=== PATIENT | male | born 1985 | race Native Hawaiian/Other Pacific Islander ===

== ENCOUNTER 2018-07-02 22:26 | Inpatient (IN) | payer MEDICAID ==
--- NOTE | 2018-07-02 22:52 | C.PDOC ---
History Of Present Illness pt presents with weakness of the right side, which started around 4-5 hours ago. Pt has also been complaining of paresthisias of the right side for about 2 months. Pt is non compliant with blood pressure medication. No f/c/n/v. No slurred speech, no visual changes Time Seen by Provider: 07/02/18 22:52 Chief Complaint (Nursing): Weakness/Neurological Deficit History Per: Family History/Exam Limitations: no limitations Onset/Duration Of Symptoms: Hrs (>4) Current Symptoms Are (Timing): Still Present Seizure Or Post-ictal Symptoms: None Possible Causative Factor(s): Other (not taking bp meds) Severity: Severe Pain Scale Rating Of: 8 Past Medical History Reviewed: Historical Data, Nursing Documentation, Vital Signs Vital Signs: Last Vital Signs Temp 98.2 F 07/02/18 22:37 Pulse 60 07/02/18 23:12 Resp 14 07/02/18 23:12 BP 144/91 H 07/02/18 23:12 Pulse Ox 98 07/02/18 23:17 - Medical History PMH: Anxiety, HTN Denies: Chronic Kidney Disease Family History: States: No Known Family Hx - Social History Hx Alcohol Use: No Hx Substance Use: No - Immunization History Hx Tetanus Toxoid Vaccination: No Hx Influenza Vaccination: No Hx Pneumococcal Vaccination: No Review Of Systems Constitutional: Negative for: Fever, Chills Eyes: Negative for: Vision Change ENT: Negative for: Throat Pain Cardiovascular: Negative for: Chest Pain Respiratory: Negative for: Shortness of Breath Gastrointestinal: Negative for: Nausea, Vomiting, Abdominal Pain Genitourinary: Negative for: Dysuria Musculoskeletal: Negative for: Back Pain Skin: Negative for: Rash Neurological: Positive for: Weakness (right side) Psych: Negative for: Anxiety Physical Exam - Physical Exam Appears: Non-toxic Skin: Warm, Dry Head: Normacephalic Eye(s): bilateral: Normal Inspection, PERRL, EOMI Oral Mucosa: Moist Neck: Trachea Midline, Supple Chest: Symmetrical Cardiovascular: Rhythm Regular Respiratory: No Rales, No Rhonchi, No Wheezing Gastrointestinal/Abdominal: Soft, No Tenderness, No Distention Back: Normal Inspection Extremity: No Tenderness Extremity: Bilateral: Atraumatic, Normal Color And Temperature Pulses: Left Dorsalis Pedis: Normal, Right Dorsalis Pedis: Normal Neurological/Psych: Oriented x3, Normal Speech, Normal Cognition Gait: Unable To Assess Extremity: Right: No Effort Against [place] (arm and leg) ED Course And Treatment - Laboratory Results Result Diagrams: 07/02/18 23:02 07/02/18 23:02 O2 Sat by Pulse Oximetry: 98 Pulse Ox Interpretation: Normal Progress Note: 10:[address] murdock -neurology district extension service agent - will see the pt using teleneurology. 11:13PM pt now starting to move his right arm and leg. good effort aganist gravity Critical Care Time - Critical Care Note Total Time (in mins): 40 Documented critical care: time excludes all time spent performing seperately billable procedures. NIHSS Stroke Scale 2 - Date/Time Evaluation Performed Date Performed: 07/02/18 Time Performed: 22:47 When Was NIHSS Performed: Baseline - How Severe is the Stroke Level of Consciousness: 0=Alert LOC to Questions: 0=Both comments correct LOC to commands: 1=Obeys one correctly Best Gaze: 0=Normal Visual: 0=No visual loss Facial: 0=Normal Motor Arm - Left: 0=No drift Motor Arm - Right: 3=No effort against gravity (falls immediately) Motor Leg - Left: 0=No drift Motor Leg - Right: 3=No effort against gravity (falls immediately) Limb Ataxia: 1=Present Upper or Lower Sensory: 0=Normal Best Language: 0=No aphasia Dysarthia: 0=Normal articulation Extinction & Inattention (Neglect): 0=Normal, no object Score: 8 Disposition Discussed With : Trina Jamison Comment: accepted the pt on his serevice and took over the care at 11:55 PM Doctor Will See Patient In The: Hospital Counseled Patient/Family Regarding: Studies Performed, Diagnosis - Disposition Disposition: HOSPITALIZED Disposition Time: 22:52 Condition: FAIR Forms: [facility] ([place]) - POA Present On Arrival: None - Clinical Impression Clinical Impression: TIA (transient ischemic attack) Decision To Admit - Pt Status Changed To: Hospital Disposition Of: Inpatient - Admit Certification Admit to Inpatient:: After my assessment, the patient will require hospitalization for at least two midnights. This is because of the severity of symptoms shown, intensity of services needed, and/or the medical risk in this patient being treated as an outpatient. - InPatient: Physician Admission Certification: I certify that this patient requires 2 or more midnights of care for the following reason:: After my assessment, the patient will require hospitalization for at least two midnights. This is because of the severity of symptoms shown, intensity of services needed, and/or the medical risk in this patient being treated as an outpatient. - . Bed Request Type: Telemetry Admitting Physician: Trina Jamison Patient Diagnosis: TIA (transient ischemic attack)
[2018-07-02] MEDS ORDERED: Iodixanol 320 MG/ML 100 ML BOTTLE IV ONE (22:59)
[2018-07-02] MEDS ORDERED: Sodium Chloride 0.9% 1,000 ML IV SCH (23:00)
[2018-07-02 23:05] LABS: BASO # 0.1 K/uL (0.0-0.2); BASO % 0.6 % (0.0-2.0); EOS # 0.4 K/uL (0.0-0.7); EOS % 2.8 % (0.0-4.0); HEMOGLOBIN 14.7 g/dL (12.0-18.0); LYMPH # 8.1 K/uL (1.0-4.3); LYMPH % 51.9 % (20.0-40.0); MEAN CELL VOLUME 79.4 fL (80.0-94.0); MEAN CORPUSCULAR HEMOGLOBIN 26.6 pg (27.0-31.0); MEAN CORPUSCULAR HGB CONC 33.5 g/dL (33.0-37.0); MEAN PLATELET VOLUME 8.5 fL (7.2-11.7); MONO % 6.2 % (0.0-10.0); NEUT % 38.5 % (50.0-75.0); RBC 5.55 Mil/uL (4.40-5.90); RED CELL DISTRIBUTION WIDTH 14.4 % (11.5-14.5); WHITE BLOOD COUNT 15.6 K/uL (4.8-10.8)
[2018-07-02 23:13] LABS: INR 1.1; PROTHROMBIN TIME 11.5 SECONDS (9.7-12.2)
[2018-07-02 23:23] LABS: ALB/GLOB RATIO 1.3 (1.0-2.1); ALBUMIN 4.1 g/dL (3.5-5.0); ALT/SGPT 24 U/L (21-72); AST/SGOT 20 U/L (17-59); BLOOD UREA NITROGEN 14 mg/dL (9-20); CALCIUM 9.1 mg/dl (8.6-10.4); GFR NON-AFRICAN AMERICAN > 60; HDL CHOLESTEROL 32 mg/dL (30-70)
[2018-07-02 23:34] LABS: LDL CHOLESTEROL 103 mg/dL (0-129)
[2018-07-02] MEDS ORDERED: Sodium Chloride 0.9% 1,000 ML IV ONE (23:42)
--- NOTE | 2018-07-02 23:48 | CP.PCM.CON ---
History of Present Illness - History of Present Illness History of Present Illness: This is a Tele-Health Emergency Stroke Visit attempted with [facility]. The patient is a 33-year-old man with a past medical history of hypertension and anxiety, who states that he had an episode of anxiety about two months ago associated with right arm weakness/numbness, but today about 6 hours prior to arrival, he noticed his right arm became weak. When he initially arrived in the ED, he had right arm and leg weakness, and a code stroke was called. His initial NIHSS was a 6. CT scan of the head and CTA of the head/neck were normal. When he returned from CT scanner, he was back to normal with no focal neurological deficits remaining. When I saw the patient, his NIHSS was 0. Review of Systems - Review of Systems All systems: reviewed and no additional remarkable complaints except Past Patient History - Past Social History Smoking Status: Light Smoker < 10 Cigarettes Daily - CARDIAC Hx Hypertension: Yes - PULMONARY Hx Respiratory Disorders: No - NEUROLOGICAL Hx Neurological Disorder: No - HEENT Hx HEENT Problems: No - RENAL Hx Chronic Kidney Disease: No - ENDOCRINE/METABOLIC Hx Endocrine Disorders: No - HEMATOLOGICAL/ONCOLOGICAL Hx Blood Disorders: No - INTEGUMENTARY Hx Dermatological Problems: No - MUSCULOSKELETAL/RHEUMATOLOGICAL Hx Musculoskeletal Disorders: No - PSYCHIATRIC Hx Anxiety: Yes Hx Substance Use: No - ANESTHESIA Hx Anesthesia: No Meds Allergies/Adverse Reactions: Allergies Allergy/AdvReac Type Severity Reaction Status Date / Time No Known Allergies Allergy Verified 07/02/18 22:45 - Medications Medications: Current Medications Sodium Chloride (Sodium Chloride 0.9%) 1,000 mls @ 100 mls/hr IV .Q10H [facility] Physical Exam - Neurological Exam Neurological exam: Alert, CN II-XII Intact - Expanded Neurological Exam Expanded Patient oriented to: person, place, time Cranial nerves: EOM's Intact: Normal, Facial [place] w/Forehead Movement: Normal , Facial [place] w/o Forehead Movement: Normal, Facial Sensation: Normal, Gag Reflex: Normal, Nystagmus: Normal, Tongue Deviation: Normal Ataxia: No Cerebellar Function: Finger to Nose: Normal, Heel to Ness: Normal Sensory exam: Lower Extremity 2 Point Discrimination: Normal, Lower Extremity Light Touch: Normal, Lower Extremity Pin Prick: Normal, Lower Extremity Temperature: Normal, Upper Extremity 2 Point Discrimination: Normal, Upper Extremity Light Touch: Normal, Upper Extremity Pin Prick: Normal, Upper Extremity Temperature: Normal Neuro motor strength exam: Left Upper Extremity: 5, Right Upper Extremity: 5, Left Lower Extremity: 5, Right Lower Extremity: 5 Results - Vital Signs Recent Vital Signs: Last Vital Signs Temp 98.2 F 07/02/18 22:37 Pulse 61 07/02/18 22:37 Resp 22 07/02/18 22:37 BP 125/86 07/02/18 22:37 Pulse Ox 98 07/02/18 23:17 - Labs Result Diagrams: 07/02/18 23:02 Labs: Laboratory Results - last 24 hr 07/02/18 07/02/18 07/02/18 22:44 23:02 23:02 WBC 15.6 H RBC 5.55 Hgb 14.7 Hct 44.0 MCV 79.4 L MCH 26.6 L MCHC 33.5 RDW 14.4 Plt Count 299 MPV 8.5 Neut % (Auto) 38.5 L Lymph % (Auto) 51.9 H [place] % (Auto) 6.2 Eos % (Auto) 2.8 Baso % (Auto) 0.6 Neut # (Auto) 6.0 Lymph # (Auto) 8.1 H [place] # (Auto) 1.0 H Eos # (Auto) 0.4 Baso # (Auto) 0.1 PT 11.5 INR 1.1 APTT 31 POC Glucose (mg/dL) 96 Assessment & Plan (1) TIA (transient ischemic attack) Assessment and Plan: Symptoms appear to be improved now, but had lasted for nearly 6 hours. I recommend the following for work-up/treatment: 1. Telemetry 2. MRI brain without contrast 3. Echocardiogram with bubble study 4. Aspirin 81 mg now, and continue daily 5. Lipitor 40 mg now 6. Lipid panel, HbA1c, B12, folate, homcysteine levels, vitamin D levels 7. Fluids with NS at 100 mL/hr 8. Permissive HTN (only treat BP that is higher than 220/110 mm Hg) for the next 24 hours 9. Case management consult 10. Psych consult for possible conversion disorder 11. dry transfer worker consult Thank you. Status: Acute Priority: High NIHSS Stroke Scale 3 - Date/Time Evaluation Performed Date Performed: 07/02/18 Time Performed: 22:47 - How Severe is the Stroke Level of Consciousness: 0=Alert LOC to Questions: 0=Both comments correct LOC to commands: 0=Obeys both correctly Best Gaze: 0=Normal Visual: 0=No visual loss Facial: 0=Normal Motor Arm - Left: 0=No drift Motor Arm - Right: 0=No drift Motor Leg - Left: 0=No drift Motor Leg - Right: 0=No drift Limb Ataxia: 0=Absent Sensory: 0=Normal Best Language: 0=No aphasia Dysarthia: 0=Normal articulation Extinction & Inattention (Neglect): 0=Normal, no object Score: 0 Severity Of Stroke: 0 = No Stroke
[2018-07-02] MEDS ORDERED: Sodium Chloride 0.9% 1,000 ML ONE (23:55)
[2018-07-03] MEDS ORDERED: Vitamins A & D Oint UD Foilpak ONE (02:09)
[2018-07-03] MEDS ORDERED: Sodium Chloride 0.9% 1,000 ML ONE (02:09)
[2018-07-03 03:00] VITALS: TEMP 97.5
--- NOTE | 2018-07-03 07:58 | RAD ---
Date of service: 07/02/2018 HISTORY: Code Stroke COMPARISON: No prior. FINDINGS: LUNGS: No active pulmonary disease. PLEURA: No significant pleural effusion identified, no pneumothorax apparent. CARDIOVASCULAR: Normal. OSSEOUS STRUCTURES: No significant abnormalities. VISUALIZED UPPER ABDOMEN: Normal. OTHER FINDINGS: None. IMPRESSION: No active disease.
--- NOTE | 2018-07-03 08:12 | CT ---
Date of service: 07/02/2018 PROCEDURE: CT HEAD WITHOUT CONTRAST. HISTORY: code stroke COMPARISON: None available. TECHNIQUE: Axial computed tomography images were obtained through the head/brain without intravenous contrast. Radiation dose: Total exam DLP = 838 mGy-cm. This CT exam was performed using one or more of the following dose reduction techniques: Automated exposure control, adjustment of the mA and/or kV according to patient size, and/or use of iterative reconstruction technique. FINDINGS: HEMORRHAGE: No intracranial hemorrhage. BRAIN: No mass effect or edema. No atrophy or chronic microvascular ischemic changes. VENTRICLES: Unremarkable. No hydrocephalus. CALVARIUM: Unremarkable. PARANASAL SINUSES: Mild to moderate mucosal thickening in the bilateral ethmoid and sphenoid sinuses compatible with chronic sinus inflammatory disease. MASTOID AIR CELLS: Unremarkable as visualized. No inflammatory changes. OTHER FINDINGS: None. IMPRESSION: No acute intracranial abnormality. Sinus mucosal disease as above. If there is persistent concern for acute ischemic change, consider correlation with MRI. These findings were preliminarily reported at 11:23 p.m. on 07/02/[address] Katherine Fisher from [facility].
[2018-07-03 08:33] VITALS: BP 105/70; PULSE 50; RESP 18; O2SAT 100
--- NOTE | 2018-07-03 09:11 | CP.PCM.PN ---
Subjective - Date & Time of Evaluation Date of Evaluation: 07/03/18 Time of Evaluation: 09:00 - Subjective Subjective: Progress note for Dr. Jamison's Service Patient was seen and examined at bedside. Patient reports he does not have any current weakness, changes in vision, decrease sensation or motor strength in all 4 for extremities. - This is a 33 year old German male with PMHx of Hypertension who presented to the ED last night with right arm weakness and numbness x 6 hours prior to arrival. Patient reported he has never had this symptoms before. He reported the symptoms remained until mid admission in the hospital. On arrival as per Neuro note, NIHSS was 6. Upon Neuro evaluation NIHSS 0. CT scan of the head and CTA of the head/neck were normal. Pending Brain MRI for discharge. Patient reports no neurological deficits currently. PMHx: Hypertension PSHx: Denied Meds: Denied All: NKDA SHx: Denied tobacco, ETOH, or illicit drug use FHx: Unremarkable Objective - Vital Signs/Intake and Output Vital Signs (last 24 hours): Temp Pulse Resp BP Pulse Ox 97.5 F L 50 L 18 105/70 100 07/03/18 07:30 07/03/18 07:30 07/03/18 07:30 07/03/18 07:30 07/03/18 07:30 - Medications Medications: Current Medications Sodium Chloride (Sodium Chloride 0.9%) 1,000 mls @ 100 mls/hr IV .Q10H [facility] Last Admin: 07/03/18 00:51 Dose: 100 mls/hr - Labs Labs: 07/02/18 23:02 07/02/18 23:02 PT 11.5 SECONDS (9.7-12.2) 07/02/18 23:02 INR 1.1 07/02/18 23:02 APTT 31 SECONDS (21-34) 07/02/18 23:02 - Constitutional Appears: No Acute Distress - Head Exam Head Exam: NORMAL INSPECTION, NORMOCEPHALIC - Eye Exam Eye Exam: EOMI, Normal appearance, PERRL Pupil Exam: NORMAL ACCOMODATION - ENT Exam ENT Exam: Mucous Membranes Moist - Respiratory Exam Respiratory Exam: NORMAL BREATHING PATTERN - Cardiovascular Exam Cardiovascular Exam: REGULAR RHYTHM - GI/Abdominal Exam GI & Abdominal Exam: Soft, Normal Bowel Sounds. absent: Distended, Tenderness - Extremities Exam Extremities Exam: Normal Inspection. absent: Pedal Edema, Tenderness - Neurological Exam Neurological Exam: Alert, Awake, CN II-XII Intact, Normal Gait, Oriented x3, Reflexes Normal Neuro motor strength exam: Left Upper Extremity: 5, Right Upper Extremity: 5, Left Lower Extremity: 5, Right Lower Extremity: 5 - Psychiatric Exam Psychiatric exam: Normal Affect, Normal Mood - Skin Skin Exam: Dry, Intact, Normal Color, Warm Assessment and Plan - Assessment and Plan (Free Text) Plan: TIA Neurology consulted: Dr. Andrade - All neurological symptoms resolved - All labs WNL Imaging: - Head / Neck CTA and Head CT: unremarkable for any findings of hemorrhagic or ischemic stroke - Brain MRI: pending official read and neuro reccs Meds: - Aspirin 81mg daily, Crestor 10mg daily Hx Hypertension - Normotensive throughout admission - Will continue to monitor Vitamin D Deficiency - Level 17.1 - Will need to take Ergocalciferol 50,000 1 tablet weekly x 6 months IGT - Hemoglobin A1C 5.9 - Encouraged diet, exercise, and weight loss All medical management per Dr. Jamison. Disposition: Pending Brain MRI and Neuro reccs. Will discharge patient once cleared from Neuro's standpoint. Case discussed w/ Dr. Jamison, Stacie Ramos DO, PGY2
--- NOTE | 2018-07-03 14:19 | CT ---
Date of service: 07/02/2018 PROCEDURE: CT Angiography of the Brain. HISTORY: r hemiplegia COMPARISON: None available. TECHNIQUE: CT angiography of the neck and intracranial arteries was performed. Coronal and sagittal maximum intensity projection reformated images were generated. This CT exam was performed using one or more of the following dose reduction techniques: Automated exposure control, adjustment of the mA and/or kV according to patient size, and/or use of iterative reconstruction technique. Contrast volume: 100 mL of Visipaque 320 intravenously. Total exam DLP: 713.2 FINDINGS: RIGHT CAROTID ARTERIES: Common Carotid Artery: Normal. Carotid Bifurcation: Normal. Internal Carotid Artery:Normal. External Carotid Artery (proximal branches): Normal. LEFT CAROTID ARTERIES: Common Carotid Artery: Normal. Carotid Bifurcation: Normal. Internal Carotid Artery:Normal. External Carotid Artery (proximal branches): Normal. VERTEBRAL ARTERIES: Right Vertebral Artery: Normal. Left Vertebral Artery: Normal. INTERNAL CEREBRAL ARTERIES: Unremarkable. The skull base, petrous, cavernous and supraclinoid segments are bilaterally widely patent. ANTERIOR CEREBRAL ARTERIES: The left A1 is smaller than the right. The anterior cerebral arteries are patent. . Smaller distal branches unremarkable, as visualized. MIDDLE CEREBRAL ARTERIES: Unremarkable. M1 and M2 segments are widely patent. Perisylvian branches grossly symmetric. POSTERIOR CIRCULATION: Basilar Artery: Unremarkable. Distal Vertebral Arteries: Unremarkable. Posterior Cerebral Arteries: Unremarkable. Posterior Inferior Cerebellar Arteries: Unremarkable. ANEURYSM/ VASCULAR MALFORMATIONS: None. OTHER FINDINGS: Almost complete opacification of the bilateral maxillary sinus and mucosal thickening in the ethmoid and sphenoid sinuses is also noted. IMPRESSION: No evidence of arterial occlusion or critical stenosis in the neck or in the intracranial arteries. . Preliminary report was submitted by [facility].
[2018-07-03 14:23] LABS: FOLATE 13.9 ng/mL
[2018-07-03] MEDS ORDERED: Ergocalciferol 50,000 Intl Units Cap PO SCH (15:15)
--- NOTE | 2018-07-03 15:37 | MRI ---
Date of service: 07/03/2018 PROCEDURE: MRI BRAIN WITHOUT CONTRAST HISTORY: code stroke COMPARISON: Noncontrast head CT from 07/02/2018. TECHNIQUE: Multiplanar, multisequence MR images of the brain were obtained without intravenous contrast enhancement. FINDINGS: HEMORRHAGE: None DWI: No evidence of an acute or early subacute infarction. BRAIN PARENCHYMA: There are multifocal small T2/FLAIR hyperintense foci in the subcortical supratentorial white matter. There is no mass, mass effect or abnormal extra-axial fluid collection. There is no territorial infarction. The midline sagittal structures are normal. VENTRICLES: The ventricles are normal in size, shape and configuration. CRANIUM: There is normal bone marrow signal pattern. ORBITS: Grossly unremarkable. PARANASAL SINUSES/MASTOIDS: There is severe polypoid mucosal thickening in the maxillary sinuses and mild to moderate polypoid mucosal thickening in the remaining paranasal sinuses. VASCULAR SYSTEM: There are normal signal voids in the larger intracranial arteries. OTHER FINDINGS: None. IMPRESSION: No acute intracranial abnormality. Mild subcortical supratentorial white matter changes are strictly nonspecific, the differential considerations include gliosis, migraine headache effect, vasculitis, Lyme disease, demyelinating disease including multiple sclerosis and premature or early chronic microangiopathic changes. Chronic pansinusitis, worse in the maxillary sinuses.
--- NOTE | 2018-07-03 15:54 | CARD ---
APPROVED REPORT Date of service: 07/03/2018 EXAM: Two-dimensional and M-mode echocardiogram with Doppler and color Doppler with bubble study Other Information Quality : [employer] : INDICATION CVA/TIA 2D DIMENSIONS IVSd0.8 (0.7-1.1cm)LVDd4.6 (3.9-5.9cm) PWd0.9 (0.7-1.1cm)LVDs2.4 (2.5-4.0cm) FS (%) 48.5 %LVEF (%)68.0 (>50%) M-Mode DIMENSIONS Left Atrium (MM)4.13 (2.5-4.0cm)IVSd1.32 (0.7-1.1cm) Aortic Root3.15 (2.2-3.7cm)LVDd5.03 (4.0-5.6cm) Aortic Cusp Exc.2.42 (1.5-2.0cm)PWd0.98 (0.7-1.1cm) FS (%) 35 %LVDs3.26 (2.0-3.8cm) LVEF (%)64 (>50%) Mitral Valve MV E Eoupaiux540.3cm/sMV A Fwkaezge81.2cm/sE/A ratio2.1 TDI E/Lateral E'0.0E/Medial E'0.0 LEFT VENTRICLE The left ventricle is normal size. There is normal left ventricular wall thickness. The left ventricular function is normal. The left ventricular ejection fraction is within the normal range. There is normal LV segmental wall motion. There is no ventricular septal defect visualized. RIGHT VENTRICLE The right ventricle is normal size. There is normal right ventricular wall thickness. The right ventricular systolic function is normal. ATRIA The left atrium size is normal. The right atrium size is normal. The interatrial septum is intact with no evidence for an atrial septal defect or PFO via Bubble Study with agitated saline. AORTIC VALVE The aortic valve is normal in structure. No aortic regurgitation is present. There is no aortic valvular stenosis. MITRAL VALVE The mitral valve is normal in structure. There is no evidence of mitral valve prolapse. There is no mitral valve stenosis. Mitral regurgitation is trace. TRICUSPID VALVE The tricuspid valve is normal in structure. There is trace tricuspid regurgitation. PULMONIC VALVE The pulmonary valve is normal in structure. There is trace pulmonic valvular regurgitation. GREAT VESSELS The aortic root is normal in size. The IVC is normal in size and collapses >50% with inspiration. PERICARDIAL EFFUSION There is no pericardial effusion. <Conclusion> Normal bi-ventricular function. No significant valvular abnormality. No evidence for an atrial septal defect or PFO via Bubble Study with agitated saline. There is no pericardial effusion.
--- NOTE | 2018-07-04 08:25 | HP ---
Copied To: Trina Jamison MD Attending MD: Trina Jamison MD HISTORY OF PRESENT ILLNESS: A 33-year-old male admitted with chief complaint of TIA, weakness. The patient is working, and he feels like legs are weak. He came ____ blood sugar. The patient has a history of . PHYSICAL EXAMINATION: GENERAL: The patient is awake, alert and oriented. VITAL SIGNS: Temperature 98, pulse 90. HEENT: Within normal limits. NECK: Supple. CHEST: Symmetrical. HEART: Regular. ABDOMEN: Soft. EXTREMITIES: No edema. IMPRESSION: Uncontrolled diabetes, weakness. PLAN: The patient to get bed rest, IV fluids. Supportive care. CAT scan of the head. Trina Jamison MD
--- NOTE | 2018-07-05 00:09 | CARD ---
APPROVED REPORT Date of service: 07/03/2018 EKG Measurement Heart [id number] [id number] <Conclusion> Sinus rhythm with 2nd degree AV block (Mobitz I) Abnormal ECG
== END 2018-07-03 17:07 | disposition home or self-care (01) | DRG 425 ==
LOC: C.ER 22:26 → C.9E 23:51 → C.6T 07-03 01:35
PROVIDERS: ADMIT Internal Medicine Pulmonary Disease; ATTEND Internal Medicine Pulmonary Disease
DX: F44.4 Conversion disorder with motor symptom or deficit (principal); E11.65 Type 2 diabetes mellitus with hyperglycemia; R29.706 NIHSS score 6; R29.818 Other symptoms and signs involving the nervous system; I10 Essential (primary) hypertension; I44.0 Atrioventricular block, first degree; R53.1 Weakness; F17.210 Nicotine dependence, cigarettes, uncomplicated; Z91.14 Patient's other noncompliance with medication regimen